=== PATIENT | female | born 1985 | race Hispanic/Latino ===

== ENCOUNTER 2023-06-03 15:26 | Emergency (ER) | payer OTHER ==
[2023-06-03 15:58] LABS: Absolute Monocytes 0.7 K/uL (0.1-1.3); Absolute Neutrophil 6.3 K/uL (1.8-8.0); Basophils % 0.3 % (0-1.3); Eosinophils % 0.3 % (0-4.4); Hemoglobin 12.6 g/dL (12.0-15.0); MCH 30.5 pg (27.0-35.0); MCHC 33.1 g/dL (32.0-36.0); MCV 91.9 fL (80-100); MPV 7.6 fL (7.6-11.3); Monocytes % 6.6 % (3.3-12.3); Neutrophils % 62.8 % (41.7-73.7); Nucleated Red Blood Cells % 0.1 % (0-0); Platelets 307 thou/uL (152-406); RBC Red Blood Cell Count 4.13 M/uL (3.86-4.86); Red Cell Distribution Width 14.5 % (12.1-15.2)
[2023-06-03 16:06] LABS: Anion Gap 8.5 mEq/L (5.0-15.0); Potassium 3.5 mEq/L (3.5-5.1)
--- NOTE | 2023-06-03 16:56 | RAD REPORT ---
EXAM DESCRIPTION: US - Transvaginal OB - 06/03/2023 3:53 pm CLINICAL HISTORY: ABD CRAMPING, COMPARISON: No comparisons TECHNIQUE: Sonographic grayscale and color flow images of a first-trimester were obtained through transvaginal approach. FINDINGS: A single gestational sac is identified along the right aspect of the thickened endometrial stripe. Gestational sac measures 9 millimeters in average diameter, corresponding to gestational age of 5 wee ks, 5 days. No pole or cardiac pulsations are identified. Maternal ovaries are unremarkable. No free fluid. IMPRESSION: 1. Single gestational sac, may relate to early . Short-term interval sonographi c follow-up in 7-10 days, as well as beta HCG level trending are recommended to establish viabi lity. 2. Calculated gestational age: 5 weeks, 5 days. Estimated due date by ultrasound: 01/29/2024.
--- NOTE | 2023-06-03 17:03 | ER ---
Nurse's Notes [facility] Name: Leydi Mukherjee Age: 37 yrs Sex: Female : 1985 Arrival Date: 06/03/2023 Time: 15:26 Bed 19 Private MD: Diagnosis: Vaginal Bleeding During Early Presentation: 06/02 15:41 Chief complaint: Patient states: "I'm 7 weeks and started having spotting on mb9 Friday. The vaginal bleeding started becoming more consistent since yesterday. I don't have pain". Coronavirus screen: Vaccine status: Patient reports receiving the 2nd dose of the covid vaccine. Ebola Screen: No symptoms or risks identified at this time. Initial Sepsis Screen: Does the patient meet any 2 criteria? No. Patient's initial sepsis screen is negative. Does the patient have a suspected source of infection? No. Patient's initial sepsis screen is negative. Risk Assessment: Do you want to hurt yourself or someone else? Patient reports no desire to harm self or others. Onset of symptoms was June 03, 2023. 15:41 Method Of Arrival: Ambulatory mb9 15:41 Acuity: ADITI 3 mb9 Triage Assessment: 15:42 General: Appears in no apparent distress. Behavior is calm, cooperative. Pain: Denies mb9 pain. EENT: No signs and/or symptoms were reported regarding the EENT system. Neuro: Farr Agitation-Sedation Scale (RASS): 0 - Alert and Calm Level of Consciousness is awake, alert, obeys commands, Oriented to person, place, time, situation, Appropriate for age. Cardiovascular: Patient's skin is warm and dry. Respiratory: Airway is patent Respiratory effort is even, unlabored, Respiratory pattern is regular, symmetrical, Breath sounds are clear bilaterally. GI: Abdomen is round non-distended, Bowel sounds present X 4 quads. Abd is soft and non tender X 4 quads. : Reports vaginal bleeding that is bright red, light flow, spotty. Derm: Skin is pink, warm \\T\\ dry. Musculoskeletal: Range of motion: intact in all extremities. 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 - Infectious Disease History:: Denies. - Social history:: Smoking status: Patient denies any tobacco usage or history of. Screenin:43 [facility] ED Fall Risk Assessment (Adult) History of falling in the last 3 months, mb9 including since admission No falls in past 3 months (0 pts) Confusion or Disorientation No (0 pts) Intoxicated or Sedated No (0 pts) Impaired Gait No (0 pts) Mobility Assist Device Used No (0 pt) Altered Elimination No (0 pt) Score/Fall Risk Level 0 - 2 = Low Risk Oriented to surroundings, Maintained a safe environment, Educated pt \\T\\ family on fall prevention, incl call for assistance when getting out of bed, Assessed \\T\\ reinforced patient's understanding of fall precautions. Abuse screen: Denies threats or abuse. Nutritional screening: No deficits noted. Tuberculosis screening: No symptoms or risk factors identified. Assessment: 15:44 Reassessment: see triage assessment. mb9 16:52 Reassessment: No changes from previously documented assessment. Patient and/or family mb9 updated on plan of care and expected duration. Pain level reassessed. Patient is alert, oriented x 3, equal unlabored respirations, skin warm/dry/pink. Vital Signs: 15:41 BP 136 / 79; Pulse 75; Resp 16; Temp 98; Pulse Ox 100% ; Weight 70.31 kg; Height 5 ft. mb9 0 in. ; Pain 0/10; 17:09 BP 128 / 86; Pulse 74; Resp 18; Pulse Ox 100% on R/A; mb9 15:41 Body Mass Index 30.27 (70.31 kg, 152.4 cm) mb9 15:41 Pain Scale: Adult mb9 ED Course: 15:29 Patient arrived in ED. ec2 15:29 Jose Angel Jones MD is Attending Physician. ec2 15:30 Mirella Jain RN is Primary Nurse. mb9 15:41 Patient taken to ultrasound. via wheelchair. mb9 15:41 Arm band placed on. mb9 15:42 Triage completed. mb9 15:43 Placed in gown. Bed in low position. Call light in reach. Side rails up X 1. Provided mb9 Education on: press call light if needing anything. Client placed on continuous cardiac and pulse oximetry monitoring. NIBP monitoring applied. Door closed. Noise minimized. Warm blanket given. 15:44 No provider procedures requiring assistance completed. Initial lab(s) drawn, by me, michael sent to lab. Inserted saline lock: 20 gauge in right antecubital area, using aseptic technique. 15:45 Abo/rh Typing Sent. mb9 15:45 HCG-Quantitative Sent. mb9 15:45 Type And Screen Sent. mb9 15:45 BMP Sent. mb9 15:45 CBC with Diff Sent. mb9 15:55 Transvaginal OB US In Process Unspecified. EDMS 17:09 IV discontinued, intact, bleeding controlled, No redness/swelling at site. Pressure mb9 dressing applied. Administered Medications: No medications were administered Medication: 15:44 VIS not applicable for this client. [email or web address] Outcome: 17:02 Discharge ordered by . ec2 17:09 Discharged to home ambulatory, with family, mbOumar 17:09 Condition: stable 17:09 Discharge instructions given to patient, family, Instructed on discharge instructions, follow up and referral plans. Demonstrated understanding of instructions, follow-up care, 17:10 Patient left the ED. michael Signatures: Dispatcher [employer] Mirella Arguello RN RN [email or web address] Jose Angel Jones MD MD ec2 Corrections: (The following items were deleted from the chart) 15:54 15:42 Allergies: No Known Allergies; michael rodriguez 15:54 15:42 PMHx: None; mb9 mb9
--- NOTE | 2023-06-03 17:03 | EDPHYS ---
Physician Documentation [facility] Name: Leydi Mukherjee Age: 37 yrs Sex: Female : 1985 Arrival Date: 06/03/2023 Time: 15:26 Bed 19 Private MD: ED Physician Jose Angel Jones HPI: 06/02 15:37 This 37 yrs old Female presents to ER via Unassigned with complaints of ec2 Vaginal Bleeding, + Preg <12wks. 15:37 Patient arrives today for evaluation of vaginal bleeding in . Patient ec2 estimates that she is approximately 7 weeks . States that she has been having vaginal spotting for the past 3 days. Patient reports no anemia symptoms, reports some minimal abdominal cramping. Patient reports no previous pregnancies. No previous miscarriages. Patient reports no blood thinners, no chronic medical problems, no bleeding diathesis.. 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 - Infectious Disease History:: Denies. - Social history:: Smoking status: Patient denies any tobacco usage or history of. ROS: 15:37 Constitutional: as per hpi ec2 Exam: 15:37 Constitutional: GEN: NAD Head: atraumatic Eyes: EOMI Ears: External ears are ec2 normal. CV: regular rate LUNGS: no respiratory distress ABD: non-distended, soft, nontender, no guarding, or rigidity SKIN: no evidence of rashes MSK: no evidence of trauma NEURO: moves all extremities equally Vital Signs: 15:41 BP 136 / 79; Pulse 75; Resp 16; Temp 98; Pulse Ox 100% ; Weight 70.31 kg; Height 5 ft. mb9 0 in. ; Pain 0/10; 17:09 BP 128 / 86; Pulse 74; Resp 18; Pulse Ox 100% on R/A; mb9 15:41 Body Mass Index 30.27 (70.31 kg, 152.4 cm) mb9 15:41 Pain Scale: Adult mb9 MDM: 15:32 Patient medically screened. ec2 15:37 Data reviewed: vital signs. ED course: Patient arrives today for evaluation of vaginal ec2 spotting in the setting of approximately 7 weeks of . Examination remarkable well-appearing nontoxic individual is otherwise in no acute distress with reassuring abdominal examination. Will evaluate type and screen, hCG as well as ultrasound. Evaluate for miscarriage, possible normal with bleeding.. 17:02 ED course: hCG level at 2200. Ultrasound shows gestational sac at approximately 5 ec2 weeks, recommended patient follow-up with her pulmonary fellow. Return precautions given . 06/02 15:31 Order name: CBC with Diff; Complete Time: 16:05 ec2 06/02 15:31 Order name: BMP; Complete Time: 16:10 ec2 06/02 15:31 Order name: Type And Screen; Complete Time: 16:53 ec2 06/02 15:37 Order name: HCG-Quantitative; Complete Time: 16:32 ec2 06/02 15:31 Order name: Transvaginal OB US; Complete Time: 16:59 ec2 06/02 15:45 Order name: IV Saline Lock; Complete Time: 15:45 mb9 Administered Medications: No medications were administered Disposition Summary: 06/03/23 17:02 Discharge Ordered Notes: Location: Home ec2 Condition: Stable ec2 Diagnosis - Vaginal Bleeding During Early ec2 Followup: ec2 - With: Private Physician - When: - Reason: Recheck today's complaints Discharge Instructions: - Discharge Summary Sheet ec2 - Vaginal Bleeding During , First Trimester, [id number] ec2 Forms: - Medication Reconciliation Form ec2 - Thank You Letter ec2 - Antibiotic Education ec2 - Prescription Opioid Use ec2 - Patient Portal Instructions ec2 - Leadership Thank You Letter ec2 Signatures: Dispatcher [employer] Mirella Arguello RN RN mb9 Jose Angel Jones MD MD ec2 Corrections: (The following items were deleted from the chart) 15:37 15:37 ABO/RH TYPING+BB.LAB.BRZ ordered. EDMS EDMS 15:54 15:42 Allergies: No Known Allergies; mb9 mb9 15:54 15:42 PMHx: None; caterina9 mb9
[2023-06-03 21:27] VITALS: BP 128/86; TEMP 98; O2SAT 100
== END 2023-06-03 17:10 | disposition home or self-care (01) ==
LOC: ER 15:26
DX: O20.9 Hemorrhage in early pregnancy, unspecified (principal); Z3A.01 Less than 8 weeks gestation of pregnancy; Z91.040 Latex allergy status; Z91.048 Other nonmedicinal substance allergy status
CPT/HCPCS: 36415; 76817; 80048; 84702; 85025; 86850; 86900; 86901; 99284

== ENCOUNTER 2023-06-07 07:07 | Emergency (ER) | payer OTHER ==
--- OUTSIDE RECORDS SUMMARY | 2023-06-07 07:10 | XMS REPORT | Continuity of Care Document ---
Author Name Unknown Address [address] [place] [address] [employer] Address [address] [place] [address] [address] [place] [address] Care Team Providers Care Clay Artist Name Role Phone Unavailable Unavailable Unavailable Encounters Start Date/Time End Date/Time Encounter Type Admission Type Attending Clinicians Care Facility Care Department Encounter ID Source 2022-09-18 09:57:06 2022-09-18 09:57:06 Outpatient [facility] [id number] Waldemar Rosario
[2023-06-07 08:32] LABS: Absolute Basophils 0.1 K/uL (0-0.5); Absolute Lymphocytes (CBC) 2.6 K/uL (0.7-4.9); Absolute Monocytes 0.9 K/uL (0.1-1.3); Absolute Neutrophil 10.7 K/uL (1.8-8.0); Basophils % 0.6 % (0-1.3); Eosinophils % 0.2 % (0-4.4); Hemoglobin 12.9 g/dL (12.0-15.0); Lymphocytes % 18.2 % (15.3-44.8); MCH 30.9 pg (27.0-35.0); MCHC 33.8 g/dL (32.0-36.0); MCV 91.3 fL (80-100); MPV 7.3 fL (7.6-11.3); Monocytes % 6.4 % (3.3-12.3); Neutrophils % 74.6 % (41.7-73.7); Nucleated Red Blood Cells % 0.1 % (0-0); Platelets 320 thou/uL (152-406); RBC Red Blood Cell Count 4.16 M/uL (3.86-4.86); Red Cell Distribution Width 14.5 % (12.1-15.2)
--- NOTE | 2023-06-07 08:36 | RAD REPORT ---
EXAM DESCRIPTION: US - Transvaginal OB - 06/07/2023 8:03 am CLINICAL HISTORY: VAGINAL BLEEDING COMPARISON: Transvaginal OB dated 06/03/2023 TECHNIQUE: Sonographic grayscale and color flow images of a first-trimester were obtained through a transvaginal approach. FINDINGS: Gestational sac is no longer visualized. A hypoechoic region is seen in the left lateral u terine wall near the lower segment, measuring up to 1.3 cm. Fundal endometrium remains thickened but is less pronounced than on the prior exam. Ill-defined posterior wall fibroid again seen. No pole identified. Maternal ovaries are unremarkable apart from crescentic cystic component measuring 1.5 x 1.1 x 1.2 cm present along the periphery of the left ovary. No free fluid. IMPRESSION: 1. Gestational sac seen on the prior of visualized, concerning for embryonic demise. Ple ase correlate with beta HCG trend. 2. Crescentic cystic 1.5 cm lesion along the left ovary, may represent remnants of a corpus luteum.
[2023-06-07 09:24] LABS: Albumin 3.6 g/dL (3.4-5.0); Bilirubin Total 0.1 mg/dL (0.2-1.0); Globulin 3.7 g/dL (2.3-3.5); Protein, Total 7.3 g/dL (6.4-8.2)
--- NOTE | 2023-06-07 09:32 | EDPHYS ---
Physician Documentation [facility] Name: Leydi Mukherjee Age: 37 yrs Sex: Female : 1985 Arrival Date: 06/07/2023 Time: 07:07 Bed 8 Private MD: ED Physician José Smith HPI: 06/06 07:26 This 37 yrs old Female presents to ER via Ambulatory with complaints of rt Vaginal Bleeding, + Preg <12wks. 07:26 Patient is a G6, P0 currently at about 6 weeks . She reports having vaginal rt spotting for about a week, had 1 prior visit to the ED. States that she had increasing bleeding to the level about menstrual cycle as well as she passed tissue. She reports abdominal cramping but denies other acute complaints, symptoms are moderate in severity, no other aggravating alleviating factors.. Historical: - Allergies: 07:17 Latex; ll1 - PMHx: 07:17 Anemia; ll1 - Immunization history:: Adult Immunizations up to date. - Infectious Disease History:: Denies. - Family history:: not pertinent. - Social history:: Smoking status: Patient denies any tobacco usage or history of. ROS: 07:26 Constitutional: Negative for fever, chills, and weight loss, Cardiovascular: Negative rt for chest pain, palpitations, and edema, Respiratory: Negative for shortness of breath, cough, wheezing, and pleuritic chest pain, Abdomen/GI: Negative for abdominal pain, nausea, vomiting, diarrhea, and constipation, Skin: Negative for injury, rash, and discoloration, Neuro: Negative for headache, weakness, numbness, tingling, and seizure, Psych: Negative for depression, anxiety, suicide ideation, homicidal ideation, and hallucinations, 07:26 : Positive for hematuria, Negative for vaginal discharge, Exam: 07:26 Constitutional: This is a well developed, well nourished patient who is awake, alert, rt and in no acute distress. Head/Face: Normocephalic, atraumatic. Chest/axilla: Normal chest wall appearance and motion. Nontender with no deformity. No lesions are appreciated. Cardiovascular: Regular rate and rhythm with a normal S1 and S2. No gallops, murmurs, or rubs. Normal PMI, no JVD. No pulse deficits. Respiratory: Lungs have equal breath sounds bilaterally, clear to auscultation and percussion. No rales, rhonchi or wheezes noted. No increased work of breathing, no retractions or nasal flaring. Abdomen/GI: Soft, non-tender, with normal bowel sounds. No distension or tympany. No guarding or rebound. No evidence of tenderness throughout. Skin: Warm, dry with normal turgor. Normal color with no rashes, no lesions, and no evidence of cellulitis. MS/ Extremity: Pulses equal, no cyanosis. Neurovascular intact. Full, normal range of motion. Neuro: Awake and alert, GCS 15, oriented to person, place, time, and situation. Cranial nerves II-XII grossly intact. Motor strength 5/5 in all extremities. Sensory grossly intact. Cerebellar exam normal. Normal gait. Vital Signs: 07:24 BP 150 / 107; Pulse 87; Resp 17; Temp 97.6; Pulse Ox 97% ; Weight 74.84 kg; Height 5 ll1 ft. 0 in. ; Pain 7/10; 08:29 BP 132 / 89; Pulse 92; Resp 18; Pulse Ox 98% on R/A; ph 09:08 BP 131 / 88; Pulse 86; Resp 16; Pulse Ox 98% ; bp 09:58 BP 139 / 85; Pulse 87; Resp 16; Pulse Ox 99% ; bp 07:24 Body Mass Index 32.22 (74.84 kg, 152.4 cm) ll1 07:24 Pain Scale: Adult ll1 MDM: 07:18 Patient medically screened. rt 09:34 Differential diagnosis: His stay PE, complete AB, threatened miscarriage. Data rt reviewed: vital signs, nurses notes, lab test result(s), radiologic studies. Counseling: I had a detailed discussion with the patient and/or guardian regarding the historical points, exam findings, and any diagnostic results supporting the discharge/admit diagnosis, lab results, radiology results, the need for outpatient follow up. 06/06 07:25 Order name: CBC with Diff; Complete Time: 08:38 rt 06/06 07:25 Order name: CMP; Complete Time: 09:25 rt 06/06 07:25 Order name: HCG-Quantitative; Complete Time: 09:25 rt 06/06 07:40 Order name: Transvaginal OB; Complete Time: 08:38 EDMS Administered Medications: No medications were administered Disposition Summary: 06/07/23 09:31 Discharge Ordered Notes: Location: Home rt Problem: new rt Symptoms: are unchanged rt Condition: Stable rt Diagnosis - Incomplete spontaneous without complication rt Followup: rt - With: Private Physician - When: 2 - 3 days - Reason: Discharge Instructions: - Discharge Summary Sheet rt - Incomplete Miscarriage rt Forms: - Medication Reconciliation Form rt - Thank You Letter rt - Antibiotic Education rt - Prescription Opioid Use rt - Patient Portal Instructions rt - Leadership Thank You Letter rt Signatures: Dispatcher [employer] EDNorman Eddy, RN RN bp Frances Hemphill RN RN ll1 José Smith MD MD rt Corrections: (The following items were deleted from the chart) 07: 07:26 CBC+H.LAB.BRZ ordered. EDMS EDMS 07: 07:26 COMPREHENSIVE METABOLIC PANEL+C.LAB.BRZ ordered. EDMS EDMS 07: 07:26 QUANTITATIVE HCG+C.LAB.BRZ ordered. EDMS EDMS 07: 07:26 OB Complete+US.RAD.BRZ ordered. EDMS EDMS
--- NOTE | 2023-06-07 09:32 | ER ---
Nurse's Notes [facility] [place] Name: Leydi Mukherjee Age: 37 yrs Sex: Female : 1985 Arrival Date: 06/07/2023 Time: 07:07 Bed 8 Private MD: Diagnosis: Incomplete spontaneous without complication Presentation: 06/06 07:17 Coronavirus screen: Client denies travel out of the [place] in the last 14 days. At this ll1 time, the client does not indicate any symptoms associated with coronavirus-19. Ebola Screen: Patient denies travel to an Ebola-affected area in the 21 days before illness onset. Initial Sepsis Screen: Does the patient meet any 2 criteria? No. Patient's initial sepsis screen is negative. Does the patient have a suspected source of infection? No. Patient's initial sepsis screen is negative. Risk Assessment: Do you want to hurt yourself or someone else? Patient reports no desire to harm self or others. 07:17 Method Of Arrival: Ambulatory ll1 07:17 Acuity: ADITI 3 ll1 07:24 Chief complaint: Patient states: Vaginal bleeding slowly getting worse over the past ll1 week. G6, P0, AB5. Here last week for the same. Onset of symptoms was May 31, 2023. Triage Assessment: 07:26 General: Appears in no apparent distress. Behavior is calm, cooperative, appropriate ll1 for age. Pain: Complains of pain in pelvis Pain currently is 7 out of 10 on a pain scale. Quality of pain is described as aching, crampy. Neuro: No deficits noted. Cardiovascular: No deficits noted. : Reports cramping, pain in right in left lower quadrant(s) vaginal bleeding that is bright red, moderate flow. Historical: - Allergies: 07:17 Latex; ll1 - PMHx: 07:17 Anemia; ll1 - Immunization history:: Adult Immunizations up to date. - Infectious Disease History:: Denies. - Family history:: not pertinent. - Social history:: Smoking status: Patient denies any tobacco usage or history of. Screenin:26 [facility] ED Fall Risk Assessment (Adult) History of falling in the last 3 months, bp including since admission No falls in past 3 months (0 pts). Abuse screen: Denies threats or abuse. Denies injuries from another. Nutritional screening: No deficits noted. Tuberculosis screening: No symptoms or risk factors identified. Assessment: 07:26 General: SEE TRIAGE NOTE. bp 08:30 Reassessment: Patient appears in no apparent distress at this time. Patient and/or ph family updated on plan of care and expected duration. Pain level reassessed. Patient is alert, oriented x 3, equal unlabored respirations, skin warm/dry/pink. 09:59 Obstetrical Assessment: General assessment: awake and alert, skin warm and dry. bp Vital Signs: 07:24 BP 150 / 107; Pulse 87; Resp 17; Temp 97.6; Pulse Ox 97% ; Weight 74.84 kg; Height 5 ll1 ft. 0 in. ; Pain 7/10; 08:29 BP 132 / 89; Pulse 92; Resp 18; Pulse Ox 98% on R/A; ph 09:08 BP 131 / 88; Pulse 86; Resp 16; Pulse Ox 98% ; bp 09:58 BP 139 / 85; Pulse 87; Resp 16; Pulse Ox 99% ; bp 07:24 Body Mass Index 32.22 (74.84 kg, 152.4 cm) ll1 07:24 Pain Scale: Adult ll1 ED Course: 07:14 Patient arrived in ED. mr 07:16 oNrman Mcguire, ARTURO is Primary Nurse. bp 07:17 Arm band placed on Patient placed in an exam room, on a stretcher. ll1 07:18 Triage completed. ll1 07:18 José Smith MD is Attending Physician. rt 07:26 Patient has correct armband on for positive identification. bp 08:05 Transvaginal OB In Process Unspecified. EDMS 08:26 HCG-Quantitative Sent. ph 08:26 CMP Sent. ph 08:26 CBC with Diff Sent. ph 09:59 Provided Education on: N/A. bp 09:59 No provider procedures requiring assistance completed. IV discontinued, intact, bp bleeding controlled, No redness/swelling at site. Pressure dressing applied. Administered Medications: No medications were administered Medication: 07:26 VIS not applicable for this client. bp Outcome: 09:31 Discharge ordered by . rt 09:59 Discharged to home ambulatory, bp 09:59 Condition: stable 09:59 Discharge instructions given to patient, Instructed on discharge instructions, follow up and referral plans. Demonstrated understanding of instructions, follow-up care, 10:00 Patient left the ED. bp Signatures: Dispatcher [employer] EDMS Aleksey Mirella, Reg Reg mr Destiney Woods, RN RN Norman Monk, ARTURO RN Frances Crenshaw RN RN ll1 José Smith MD MD rt
[2023-06-07 10:32] VITALS: BP 139/85; TEMP 97.6; O2SAT 99
== END 2023-06-07 10:00 | disposition home or self-care (01) ==
LOC: ER 07:07
DX: O03.4 Incomplete spontaneous abortion without complication (principal); Z91.040 Latex allergy status
CPT/HCPCS: 36415; 76817; 80053; 84702; 85025; 99283

== ENCOUNTER 2024-10-14 00:13 | Emergency (ER) | payer OTHER ==
--- OUTSIDE RECORDS SUMMARY | 2024-10-14 00:16 | XMS REPORT | Continuity of Care Document ---
Author Name Unknown Address [address] [place], [place] [id number] [facility] Address [address] [place] [address] [address] [place] [address] Care Team Providers Care Paramedic Supervisor Name Role Phone Unavailable Unavailable Unavailable Encounters Start Date/Time End Date/Time Encounter Type Admission Type Attending Clinicians Care Facility Care Department Encounter ID Source 2022-09-18 09:57:06 2022-09-18 09:57:06 Outpatient [facility] [id number] Waldemar Rosario
[2024-10-14] MEDS ORDERED: TETRACAINE HCL 0.5% 4ML OPTH ONE (00:39)
[2024-10-14] MEDS ORDERED: FLUORESCEIN SODIUM 1 MG/WRAP ONE (00:40)
--- NOTE | 2024-10-14 01:12 | ER ---
Nurse's Notes [facility] [place] Name: Leydi Mkuherjee Age: 38 yrs Sex: Female : 1985 Arrival Date: 10/14/2024 Time: 00:13 Bed 12 Private MD: Diagnosis: Unspecified acute conjunctivitis, right eye;Chemosis of left eye Presentation: 10/14 00:43 Chief complaint: Patient states: something in left eye. Coronavirus screen: Client vc1 denies travel out of the [place] in the last 14 days. At this time, the client does not indicate any symptoms associated with coronavirus-19. Ebola Screen: Patient negative for fever greater than or equal to 101.5 degrees Fahrenheit, and additional compatible Ebola Virus Disease symptoms Patient denies exposure to infectious person. Patient denies travel to an Ebola-affected area in the 21 days before illness onset. No symptoms or risks identified at this time. Initial Sepsis Screen: Does the patient meet any 2 criteria? No. Patient's initial sepsis screen is negative. Does the patient have a suspected source of infection? No. Patient's initial sepsis screen is negative. Risk Assessment: Do you want to hurt yourself or someone else? Patient reports no desire to harm self or others. Onset of symptoms was October 14, 2024. 00:43 Method Of Arrival: Ambulatory vc1 00:43 Acuity: ADITI 4 vc1 Triage Assessment: 02:10 General: Appears in no apparent distress. uncomfortable, Behavior is calm, cooperative, vc1 appropriate for age. Pain: Complains of pain in left eye. EENT: Sclera/Cornea are reddened in inner aspect of conjunctiva of left eye. Neuro: Level of Consciousness is awake, alert, obeys commands, Oriented to person, place, time, situation, Appropriate for age. Cardiovascular: Heart tones S1 S2 present Capillary refill < 3 seconds Patient's skin is warm and dry. Respiratory: Airway is patent Respiratory effort is even, unlabored, Respiratory pattern is regular, symmetrical, Breath sounds are clear bilaterally. GI: No deficits noted. No signs and/or symptoms were reported involving the gastrointestinal system. : No deficits noted. No signs and/or symptoms were reported regarding the genitourinary system. Derm: No deficits noted. No signs and/or symptoms reported regarding the dermatologic system. Musculoskeletal: No deficits noted. No signs and/or symptoms reported regarding the musculoskeletal system. Historical: - Allergies: 00:45 Latex, Natural Rubber; vc1 - Home Meds: 00:45 SUMATRIPTAN [Active]; vc1 - PMHx: 00:45 Anemia; Migraine; vc1 - PSHx: 00:45 None; vc1 - Immunization history:: Client reports having NOT received the Covid vaccine. - Infectious Disease History:: Denies. - Social history:: Smoking status: Reported history of juuling and/or vaping. Screenin:07 [facility] ED Fall Risk Assessment (Adult) History of falling in the last 3 months, vc1 including since admission No falls in past 3 months (0 pts) Confusion or Disorientation No (0 pts) Intoxicated or Sedated No (0 pts) Impaired Gait No (0 pts) Mobility Assist Device Used No (0 pt) Altered Elimination No (0 pt) Score/Fall Risk Level 0 - 2 = Low Risk Oriented to surroundings, Maintained a safe environment, Educated pt \T\ family on fall prevention, incl call for assistance when getting out of bed, Provided non-skid footwear, Hourly rounding (assess needs \T\ fall precautionary measures) done. Abuse screen: Denies threats or abuse. Nutritional screening: No deficits noted. Tuberculosis screening: No symptoms or risk factors identified. Vital Signs: 00:43 BP 139 / 99; Pulse 65; Resp 16; Temp 99.5; Pulse Ox 98% ; Weight 81.65 kg; Height 5 ft. vc1 0 in. ; 00:43 Body Mass Index 35.15 (81.65 kg, 152.4 cm) vc1 ED Course: 00:18 Patient arrived in ED. jj6 00:45 Triage completed. vc1 00:45 Arm band placed on right wrist. vc1 01:04 Laurence Ledesma FNP-C is PHCP. kb 01:04 Alexy Celestin MD is Attending Physician. kb 01:36 Adriana Perez, ARTURO is Primary Nurse. vc1 02:08 Patient has correct armband on for positive identification. Bed in low position. Call vc1 light in reach. Provided Education on: Plan of care. Pulse ox on. NIBP on. 02:08 No provider procedures requiring assistance completed. Patient did not have IV access vc1 during this emergency room visit. Administered Medications: 01:36 Drug: Tetracaine Ophthalmic Drops 0.5 % 1 drops Ophthalmic once Route: Ophthalmic; vc1 Site: left eye; Medication: 02:08 VIS not applicable for this client. vc1 Outcome: 01:12 Discharge ordered by . frantz 02:11 Discharged to home ambulatory, vc1 02:11 Condition: stable 02:11 Discharge instructions given to patient, Instructed on discharge instructions, follow up and referral plans. medication usage, Demonstrated understanding of instructions, follow-up care, medications, Prescriptions given X 1, 02:12 Patient left the ED. vc1 Signatures: Laurence Ledesma, TURKISH RUBBER-C TURKISH RUBBER-Shu Ye jj6 Adriana Perez RN RN vc1 Corrections: (The following items were deleted from the chart) 00:45 00:45 Allergies: No Known Allergies; vc1 vc1
--- NOTE | 2024-10-14 01:12 | EDPHYS ---
Physician Documentation [facility] [place] Name: Leydi Mukherjee Age: 38 yrs Sex: Female : 1985 Arrival Date: 10/14/2024 Time: 00:13 Bed 12 Private MD: ED Physician Alexy Celestin HPI: 10/14 01:32 This 38 yrs old Female presents to ER via Ambulatory with complaints of kb Foreign Body In Eye. 01:32 Patient is a 38-year-old female who presents for foreign body sensation in left eye kb that started this morning. States it was intermittent but is gotten worse this evening. States while she has been in the room she started feeling like something is in her right eye as well.. Historical: - Allergies: 00:45 Latex, Natural Rubber; vc1 - Home Meds: 00:45 SUMATRIPTAN [Active]; vc1 - PMHx: 00:45 Anemia; Migraine; vc1 - PSHx: 00:45 None; vc1 - Immunization history:: Client reports having NOT received the Covid vaccine. - Infectious Disease History:: Denies. - Social history:: Smoking status: Reported history of juuling and/or vaping. ROS: 01:30 Constitutional: As per HPI kb Exam: 01:30 Constitutional: This is a well developed, well nourished patient who is awake, alert, kb and in no acute distress. Head/Face: Normocephalic, atraumatic. ENT: Moist Mucous membranes Respiratory: Respirations even and unlabored. No increased work of breathing. Talking in full sentences Skin: Warm, dry with normal turgor. Normal color. MS/ Extremity: Pulses equal, no cyanosis. Neurovascular intact. Full, normal range of motion. Neuro: Awake and alert, GCS 15, oriented to person, place, time, and situation. 01:30 Eyes: Conjunctiva: chemosis, that is mild, that is moderate, in left eye, injected, in the right eye, Corneas: are normal, no evidence of abrasion, no foreign body, Vital Signs: 00:43 BP 139 / 99; Pulse 65; Resp 16; Temp 99.5; Pulse Ox 98% ; Weight 81.65 kg; Height 5 ft. vc1 0 in. ; 00:43 Body Mass Index 35.15 (81.65 kg, 152.4 cm) vc1 Procedures: 01:31 Eye Exam: Tetracaine, fluorescein strip and [place] lamp used to examine eye. No foreign kb bodies abrasions or ulcerations in either eye. MDM: 01:04 Medical Screening Exam initiated kb :31 Differential diagnosis: Corneal abrasion of Corneal ulcer of Foreign body in chemosis. kb Data reviewed: vital signs, nurses notes. Counseling: I had a detailed discussion with the patient and/or guardian regarding the historical points, exam findings, and any diagnostic results supporting the discharge/admit diagnosis, the need for outpatient follow up, an opthalmologist, to return to the emergency department if symptoms worsen or persist or if there are any questions or concerns that arise at home. 10/14 01:11 Order name: Eye Tray; Complete Time: :36 kb 10/14 01:11 Order name: Fluoresene Opth strip; Complete Time: :36 kb Administered Medications: :36 Drug: Tetracaine Ophthalmic Drops 0.5 % 1 drops Ophthalmic once Route: Ophthalmic; vc1 Site: left eye; Disposition: 07:35 I reviewed the patient's care provided by the Advanced Practice Provider and agree with tw7 the diagnosis and treatment plan. Disposition Summary: 10/14/24 01:12 Discharge Ordered Notes: Location: Home kb Condition: Stable kb Diagnosis - Unspecified acute conjunctivitis, right eye kb - Chemosis of left eye kb Followup: kb - With: Emergency Department - When: As needed - Reason: Worsening of condition Followup: kb - With: Private Physician - When: 2 - 3 days - Reason: Recheck today's complaints, Continuance of care, Re-evaluation by your physician Discharge Instructions: - Discharge Summary Sheet kb - Bacterial Conjunctivitis, Adult, [id number] kb Forms: - Medication Reconciliation Form kb - Antibiotic Education kb - Prescription Opioid Use kb - Patient Portal Instructions kb - Leadership Thank You Letter kb Prescriptions: - Vigamox 0.5 % Ophthalmic Drops - instill 1 drop OPHTHALMIC route every 8 hours for 7 days; 5 milliliter; kb Refills: 0, Product Selection Permitted Signatures: Laurence Ledesma FNP-C FNP-Ckb Calcote, Vanessa, RN RN vc1 Alexy Celestin MD MD tw7 Corrections: (The following items were deleted from the chart) 00:45 00:45 Allergies: No Known Allergies; vc1 vc1 01:33 01:31 Eye Exam: Tetracaine, fluorescein strip and [place] lamp used to examine eye. No kb foreign bodies abrasions or ulcerations. kb
[2024-10-14 13:35] VITALS: BP 139/99; TEMP 99.5; O2SAT 98
== END 2024-10-14 02:12 | disposition home or self-care (01) ==
LOC: ER 00:13
DX: H10.31 Unspecified acute conjunctivitis, right eye (principal); H11.422 Conjunctival edema, left eye
CPT/HCPCS: 99283